=== PATIENT | female | born 2000 | race American Indian/Alaskan Native ===

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

== ENCOUNTER 2021-10-02 16:28 | Emergency (ER) | payer SELFPAY ==
[2021-10-02] MEDS ORDERED: Sodium Chloride 0.9% 10 ML Syringe FLUSH PRN (17:15)
[2021-10-02] MEDS ORDERED: Sodium Chloride 0.9% 1,000 ML IV ONE ×2 (17:15→18:02)
[2021-10-02] MEDS ORDERED: Promethazine 25 MG in Sodium Chloride 0.9% 50 ML IV ONE (17:15)
--- NOTE | 2021-10-02 17:29 | EDM.PDOC ---
ED HPI GENERAL MEDICAL PROBLEM - General Chief Complaint: Gastrointestinal Problem Stated Complaint: VOMITING X 5 DAYS Time Seen by Provider: 10/02/21 17:09 Source of Information: Reports: Patient, RN Notes Reviewed History Limitations: Reports: No Limitations - History of Present Illness INITIAL COMMENTS - FREE TEXT/NARRATIVE: Patient is a 21-year-old female who presents to the ER for her nausea and vomiting. States she has a history of this, but this has been bad for the past few days. States she has been ill for about a week, and states she has not been able to keep much down for food or fluids at all. Might be having some fevers or chills, and she feels short of breath due to her increased anxiety as well. Patient is visibly shaky but again attributes this to her anxiety. Patient recently moved here from [place], and states that she has had a abdominal/GI work-up for her abdominal pain and nothing has ever really been found to be the problem. Nursing staff did note that she admitted to a history of smoking pot, but has not done so for the past few days. Patient states she has had a prescription for Zofran but has used this up and states it did not really seem to be helping much at all. She did stop at a [facility] and got some Dramamine per the pharmacist recommendations and note that this did not help either. 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: Reports: Other (see below) Other 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: dramamine - Related Data Allergies Allergy/AdvReac Type Severity Reaction Status Date / Time No Known Allergies Allergy Verified 10/02/21 16:46 Home Meds: Home Meds Metoclopramide HCl 10 mg PO QID PRN #30 tablet 10/02/21 [Rx] Past Medical History Gastrointestinal History: Reports: Other (See Below) Other Gastrointestinal History: chronic abdominal issues- has seen specialist in [place] for this Psychiatric History: Reports: Anxiety - Past Surgical History GI Surgical History: Reports: Colonoscopy Musculoskeletal Surgical History: Reports: Shoulder Surgery Other Musculoskeletal Surgeries/Procedures:: right rotator cuff surgery Social & Family History - Tobacco Use Tobacco Use Status *Q: Current Some Day Tobacco User Years of Tobacco use: 1 Packs/Tins Daily: 0.2 - Caffeine Use Caffeine Use: Reports: Coffee - Recreational Drug Use Recreational Drug Use: Yes Drug Use in Last 12 Months: Yes Recreational Drug Type: Reports: Marijuana/Hashish Recreational Drug Use Frequency: Daily - Living Situation & Occupation Living situation: Reports: Single, with Significant Other (Boyfriend), Other (friends) Occupation: Employed ([employer]) ED ROS GENERAL - Review of Systems Review Of Systems: Comprehensive ROS is negative, except as noted in HPI. ED EXAM, GI/ABD - Physical Exam Exam: See Below Exam Limited By: No Limitations General Appearance: Alert, WD/WN, No Apparent Distress, Anxious (visibly) Throat/Mouth: Normal Inspection, Other (bilateral dry parched lips) Respiratory/Chest: No Respiratory Distress, Lungs Clear, Normal Breath Sounds, No Accessory Muscle Use, Chest Non-Tender Cardiovascular: Normal Peripheral Pulses, Regular Rate, Rhythm, No Edema GI/Abdominal Exam: Normal Bowel Sounds, Soft, Non-Tender, No Distention, No Mass Extremities: Normal Inspection, Normal Capillary Refill Neurological: Alert, Oriented, Normal Cognition, No Motor/Sensory Deficits Psychiatric: Anxious Skin Exam: Warm, Dry, Intact, Normal Color, No Rash Course - Vital Signs Last Recorded V/S: Last Vital Signs Temp 97.9 F 10/02/21 16:40 Pulse 84 10/02/21 16:40 Resp 16 10/02/21 16:40 BP 128/79 10/02/21 16:40 Pulse Ox 96 10/02/21 16:40 - Orders/Labs/Meds Orders: Active Orders 24 hr Category Date Time Status Peripheral IV Care [RC] . DIRECTED Care 10/02/21 17:15 Ordered Sodium Chloride 0.9% [Saline Flush] Med 10/02/21 17:15 Active 10 ml FLUSH ASDIRECTED PRN Peripheral IV Insertion Adult [OM.PC] Routine Oth 10/02/21 17:15 Ordered Medication Orders Sodium Chloride (Sodium Chloride 0.9% 10 Ml Syringe) 10 ml FLUSH ASDIRECTED PRN PRN Reason: Keep Vein Open Last Admin: 10/02/21 17:27 Dose: 10 ml Documented by: MEERA Labs: Laboratory Tests 10/02/21 10/02/21 10/02/21 Range/Units 16:45 16:55 16:55 WBC 7.33 (3.98-10.04) K/mm3 RBC 5.38 H (3.98-5.22) M/mm3 Hgb 14.7 D (11.2-15.7) gm/dl Hct 43.3 (34.1-44.9) % MCV 80.5 D (79.4-94.8) fl MCH 27.3 (25.6-32.2) pg MCHC 33.9 (32.2-35.5) g/dl RDW Std Deviation 45.1 (36.4-46.3) fL Plt Count 267 (182-369) K/mm3 MPV 9.8 (9.4-12.3) fl Neut % (Auto) 75.7 H (34.0-71.1) % Lymph % (Auto) 8.6 L (19.3-51.7) % [place] % (Auto) 15.3 H (4.7-12.5) % Eos % (Auto) 0 L (0.7-5.8) Baso % (Auto) 0.1 (0.1-1.2) % Neut # (Auto) 5.55 (1.56-6.13) K/mm3 Lymph # (Auto) 0.63 L (1.18-3.74) K/mm3 [place] # (Auto) 1.12 H (0.24-0.36) K/mm3 Eos # (Auto) 0.00 L (0.04-0.36) K/mm3 Baso # (Auto) 0.01 (0.01-0.08) K/mm3 Manual Slide Review Sodium 139 (136-145) mEq/L Potassium 3.4 L (3.5-5.1) mEq/L Chloride 98 (98-107) mEq/L Carbon Dioxide 23 (21-32) mEq/L Anion Gap 21.4 H (5-15) BUN 11 (7-18) mg/dL Creatinine 0.9 (0.55-1.02) mg/dL Est Cr Clr Drug Dosing 104.20 mL/min Estimated GFR (MDRD) > 60 (>60) mL/min BUN/Creatinine Ratio 12.2 L (14-18) Glucose 109 H (70-99) mg/dL Calcium 8.9 (8.5-10.1) mg/dL Total Bilirubin 0.6 (0.2-1.0) mg/dL AST 36 (15-37) U/L ALT 32 (14-59) U/L Alkaline Phosphatase 67 (46-116) U/L Total Protein 8.9 H (6.4-8.2) g/dl Albumin 3.8 (3.4-5.0) g/dl Globulin 5.1 gm/dL Albumin/Globulin Ratio 0.8 L (1-2) Urine Color (Yellow) Urine Appearance (Clear) Urine pH (5.0-8.0) Ur Specific [place] (1.005-1.030) Urine Protein (Negative) Urine Glucose (UA) (Negative) Urine Ketones (Negative) Urine Occult Blood (Negative) Urine Nitrite (Negative) Urine Bilirubin (Negative) Urine Urobilinogen (0.2-1.0) Ur Leukocyte Esterase (Negative) Urine RBC (0-5) /hpf Urine WBC (0-5) /hpf Ur Squamous Epith Cells (0-5) /hpf Urine Bacteria (FEW) /hpf Urine Mucus (FEW) /hpf Urine Opiates Screen (IEWIQE=863) Ur Buprenorphine Scrn (CUTOFF=10) Ur Oxycodone Screen (SRM9AK=388) Urine Methadone Screen (TMIFON=618) Ur Propoxyphene Screen (WZEUKM=500) Ur Barbiturates Screen (BQIKDH=171) Ur Tricyclics Screen (SRKURP=915) Ur Phencyclidine Scrn (CUTOFF=25) Ur Amphetamine Screen (QJAOYW=355) U Methamphetamines Scrn (EKJZRO=486) U Benzodiazepines Scrn (YOLCYJ=301) U Cocaine Metab Screen (LFFDLL=808) U Marijuana (THC) Screen (CUTOFF=50) Influenza Type A RNA Negative (NEGATIVE) Influenza Type B RNA Negative (NEGATIVE) SARS-CoV-2 RNA (YANIRA) Negative (NEGATIVE) 10/02/21 10/02/21 Range/Units 18:40 18:40 WBC (3.98-10.04) K/mm3 RBC (3.98-5.22) M/mm3 Hgb (11.2-15.7) gm/dl Hct (34.1-44.9) % MCV (79.4-94.8) fl MCH (25.6-32.2) pg MCHC (32.2-35.5) g/dl RDW Std Deviation (36.4-46.3) fL Plt Count (182-369) K/mm3 MPV (9.4-12.3) fl Neut % (Auto) (34.0-71.1) % Lymph % (Auto) (19.3-51.7) % [place] % (Auto) (4.7-12.5) % Eos % (Auto) (0.7-5.8) Baso % (Auto) (0.1-1.2) % Neut # (Auto) (1.56-6.13) K/mm3 Lymph # (Auto) (1.18-3.74) K/mm3 [place] # (Auto) (0.24-0.36) K/mm3 Eos # (Auto) (0.04-0.36) K/mm3 Baso # (Auto) (0.01-0.08) K/mm3 Manual Slide Review Sodium (136-145) mEq/L Potassium (3.5-5.1) mEq/L Chloride (98-107) mEq/L Carbon Dioxide (21-32) mEq/L Anion Gap (5-15) BUN (7-18) mg/dL Creatinine (0.55-1.02) mg/dL Est Cr Clr Drug Dosing mL/min Estimated GFR (MDRD) (>60) mL/min BUN/Creatinine Ratio (14-18) Glucose (70-99) mg/dL Calcium (8.5-10.1) mg/dL Total Bilirubin (0.2-1.0) mg/dL AST (15-37) U/L ALT (14-59) U/L Alkaline Phosphatase (46-116) U/L Total Protein (6.4-8.2) g/dl Albumin (3.4-5.0) g/dl Globulin gm/dL Albumin/Globulin Ratio (1-2) Urine Color Yellow (Yellow) Urine Appearance Clear (Clear) Urine pH 6.5 (5.0-8.0) Ur Specific [place] 1.020 (1.005-1.030) Urine Protein 2+ H (Negative) Urine Glucose (UA) Negative (Negative) Urine Ketones 4+ H (Negative) Urine Occult Blood Negative (Negative) Urine Nitrite Negative (Negative) Urine Bilirubin 1+ H (Negative) Urine Urobilinogen 1.0 (0.2-1.0) Ur Leukocyte Esterase Negative (Negative) Urine RBC 0-5 (0-5) /hpf Urine WBC 0-5 (0-5) /hpf Ur Squamous Epith Cells 5-10 H (0-5) /hpf Urine Bacteria Many H (FEW) /hpf Urine Mucus Moderate H (FEW) /hpf Urine Opiates Screen Negative (MIFJOZ=035) Ur Buprenorphine Scrn Negative (CUTOFF=10) Ur Oxycodone Screen Negative (NJG3HK=478) Urine Methadone Screen Negative (HWKXXK=010) Ur Propoxyphene Screen Negative (BBCLLO=664) Ur Barbiturates Screen Negative (GRDQZI=959) Ur Tricyclics Screen Negative (HVCOHD=841) Ur Phencyclidine Scrn Negative (CUTOFF=25) Ur Amphetamine Screen Negative (QWNOMC=868) U Methamphetamines Scrn Negative (YBFMPN=268) U Benzodiazepines Scrn Negative (OKDQGH=211) U Cocaine Metab Screen Negative (GFJLCT=738) U Marijuana (THC) Screen Presumptive positive H (CUTOFF=50) Influenza Type A RNA (NEGATIVE) Influenza Type B RNA (NEGATIVE) SARS-CoV-2 RNA (YANIRA) (NEGATIVE) Meds: Medications Generic Name Dose Route Start Last Admin Trade Name Freq PRN Reason Stop Dose Admin Sodium Chloride 10 ml 10/02/21 17:15 10/02/21 17:27 Sodium Chloride 0.9% 10 Ml Syringe FLUSH 10 ml ASDIRECTED PRN Administration Keep Vein Open Discontinued Medications Generic Name Dose Route Start Last Admin Trade Name Freq PRN Reason Stop Dose Admin Sodium Chloride 1,000 mls @ 999 mls/hr 10/02/21 17:15 10/02/21 17:30 Normal Saline IV 10/02/21 18:15 999 mls/hr ONETIME ONE Administration Promethazine HCl 25 mg/ Sodium 51 mls @ 100 mls/hr 10/02/21 17:15 10/02/21 17:25 Chloride IV 10/02/21 17:45 100 mls/hr ONETIME ONE Administration Sodium Chloride 1,000 mls @ 999 mls/hr 10/02/21 18:02 10/02/21 19:27 Normal Saline IV 10/02/21 19:02 999 mls/hr ONETIME ONE Administration Metoclopramide HCl 10 mg 10/02/21 18:02 10/02/21 18:10 Metoclopramide 10 Mg/2 Ml Sdv IVPUSH 10/02/21 18:03 10 mg ONETIME ONE Administration - Re-Assessments/Exams Free Text/Narrative Re-Assessment/Exam: 10/02/21 17:28 Patient presents to the ER for evaluation of her nausea and vomiting. We will go ahead and get some IV fluids started, get some basic labs and a Covid screen, and give her some Phenergan for initial management. 10/02/21 19:06 Labs have resulted, the CBC is unremarkable, CMP demonstrates an anion gap of 21.4, urinalysis has 4+ ketones but no sign of infection. Patient's influenza screen and Covid screen is negative. Patient was still feeling little bit nauseous after the initial Phenergan, and due to the elevated anion gap we will go ahead and do a second bag of fluids and have given her 10 mg Reglan for ongoing management. Nursing staff did make me aware that the patient told her that she was taking a friend's Seroquel due to a recent break-up with her boyfriend over the last few days as well so she could "sleep". States she was not taking this to excess. 10/02/21 20:02 Patient states she is feeling little bit better. We will go ahead and get her a prescription for Reglan she states this seemed to help the most. I do believe that this could be due to her marijuana use causing cyclical vomiting syndrome in nature. We will have her try to quit using marijuana to see if this helps relieve some of her symptoms. Departure - Departure Time of Disposition: 20:03 Disposition: Home, Self-Care 01 Condition: Good Clinical Impression: Cyclical vomiting syndrome, Dehydration - Discharge Information *PRESCRIPTION DRUG MONITORING PROGRAM REVIEWED*: No *COPY OF PRESCRIPTION DRUG MONITORING REPORT IN PATIENT ELISE: No Prescriptions: Metoclopramide HCl 10 mg PO QID PRN #30 tablet PRN Reason: Nausea Instructions: Dehydration, Adult, [id number], Cyclic Vomiting Syndrome, Adult Referrals: PCP,None [Primary Care Provider] - Forms: ED Department Discharge Additional Instructions: You were evaluated in the ER today for your nausea and vomiting. You had some labs taken, which did demonstrate quite a bit of dehydration and you are given IV fluids for this along with IV nausea medication. The Reglan seemed to help provide you the most relief from the nausea. You have been given a prescription for Reglan you may take 1 tablet 4 times a day as needed for ongoing nausea management. This medication was electronically sent to the [place] pharmacy located in the [place]. Symptoms may be stemming from marijuana use, I would recommend that you stop smoking marijuana to see if this helps relieve some of your abdomen discomfort/nausea and vomiting. Do not hesitate to return to the ER at any time if symptoms change or worsen. Thank you for allowing and choosing us to be involved in your healthcare needs. Sepsis Event Note (ED) - Focused Exam Vital Signs: Vital Signs Temp Pulse Resp BP Pulse Ox 10/02/21 16:40 97.9 F 84 16 128/79 96 - My Orders Last 24 Hours: My Active Orders 10/02/21 17:15 Peripheral IV Care [RC] . DIRECTED Sodium Chloride 0.9% [Saline Flush] 10 ml FLUSH ASDIRECTED PRN Peripheral IV Insertion Adult [OM.PC] Routine - Assessment/Plan Last 24 Hours: My Active Orders 10/02/21 17:15 Peripheral IV Care [RC] . DIRECTED Sodium Chloride 0.9% [Saline Flush] 10 ml FLUSH ASDIRECTED PRN Peripheral IV Insertion Adult [OM.PC] Routine
[2021-10-02] MEDS ORDERED: Metoclopramide 10 MG/2 ML SDV IVPUSH ONE (18:02)
[2021-10-02 18:04] LABS: CORONAVIRUS COVID-19 NAA NEGATIVE (NEGATIVE)
== END 2021-10-02 20:30 | disposition home or self-care (01) ==
LOC: JD.ED 16:28
DX: R11.2 Nausea with vomiting, unspecified (principal); E86.0 Dehydration; Z72.0 Tobacco use; Z20.822 Contact with and (suspected) exposure to COVID-19
CPT/HCPCS: 0240U; 36415; 80053; 80306; 81001; 85025; 96361; 96365; 96375; 99284; J2550; J2765; J7030

== ENCOUNTER 2021-10-04 17:36 | Emergency (ER) | payer SELFPAY ==
[2021-10-04] MEDS ORDERED: Sodium Chloride 0.9% 1,000 ML IV STA (19:25)
[2021-10-04] MEDS ORDERED: Pantoprazole 40 MG Vial IVPUSH ONE (19:27)
[2021-10-04] MEDS ORDERED: Ondansetron 4 MG/2 ML SDV IVPUSH ONE (19:29)
[2021-10-04] MEDS ORDERED: HYDROmorphone 0.5 MG/0.5 ML Syringe IVPUSH ONE (19:29)
--- NOTE | 2021-10-04 19:35 | EDM.PDOC ---
ED HPI GENERAL MEDICAL PROBLEM - General Chief Complaint: Gastrointestinal Problem Stated Complaint: vomiting Time Seen by Provider: 10/04/21 19:03 Source of Information: Reports: Patient, Family History Limitations: Reports: No Limitations - History of Present Illness INITIAL COMMENTS - FREE TEXT/NARRATIVE: The patient presents for abdominal pain, nausea, vomiting and diarrhea. This has been going no for a week. She was seen here 2 days ago. She was given IV fluids and something for nausea and vomiting and labs. Her labs looked good. She was COVID negative. She was given some reglan at home for the nausea and vomiting. That has not been helping. She has generalized abdominal pain. Nothing stays down anymore. Even water will make her vomit. She has lost about 20 pounds. She also has a cough but no fever or chills. She has diarrhea but no dysuria. She has no history of this in the past. She still has her appendix and gallbladder. Onset: Gradual Duration: Week(s): (1) Location: Reports: Abdomen Quality: Reports: Sharp Severity: Moderate Improves with: Reports: None Worsens with: Reports: None Associated Symptoms: Reports: Cough, Nausea/Vomiting. Denies: Chest Pain, Fever/Chills, Headaches, Shortness of Breath - Related Data Allergies Allergy/AdvReac Type Severity Reaction Status Date / Time No Known Allergies Allergy Verified 10/04/21 19:11 Home Meds: Home Meds RX: Metoclopramide HCl 10 mg PO QID PRN #30 tablet 10/02/21 [Rx] Codeine/Promethazine [Phenergan with Codeine] 5 - 10 ml PO Q6HR PRN #300 ml 10/05/21 [Rx] Ondansetron [Zofran ODT] 4 mg PO Q6H PRN #20 tab.dis 10/05/21 [Rx] RX: Potassium Chloride 20 meq PO DAILY #20 tablet.er 10/05/21 [Rx] Past Medical History Gastrointestinal History: Reports: Other (See Below) Other Gastrointestinal History: chronic abdominal issues- has seen specialist in [place] for this Psychiatric History: Reports: Anxiety - Past Surgical History GI Surgical History: Reports: Colonoscopy Musculoskeletal Surgical History: Reports: Shoulder Surgery Other Musculoskeletal Surgeries/Procedures:: right rotator cuff surgery Social & Family History - Tobacco Use Tobacco Use Status *Q: Never Tobacco User - Caffeine Use Caffeine Use: Reports: None - Recreational Drug Use Recreational Drug Use: Yes 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 Denies: Shortness of Breath Cardiovascular: Reports: No Symptoms Endocrine: Reports: No Symptoms GI/Abdominal: Reports: Abdominal Pain, Diarrhea, Nausea, Vomiting : Reports: No Symptoms Musculoskeletal: Reports: No Symptoms ED EXAM, GI/ABD - Physical Exam Exam: See Below Exam Limited By: No Limitations General Appearance: Alert, No Apparent Distress Ears: Normal External Exam Nose: Normal Inspection Head: Atraumatic, Normocephalic Neck: Normal Inspection Respiratory/Chest: No Respiratory Distress, Lungs Clear, Normal Breath Sounds Cardiovascular: Regular Rate, Rhythm, No Edema, No Murmur GI/Abdominal Exam: Soft, No Organomegaly, No Mass, Tender (Moderate generalized abdominal pain) Back Exam: Normal Inspection Extremities: Normal Inspection Course - Vital Signs Last Recorded V/S: Last Vital Signs Temp 97.3 F 10/04/21 19:03 Pulse 75 10/04/21 19:03 Resp 20 10/04/21 19:03 BP 133/87 10/04/21 19:03 Pulse Ox 97 10/04/21 19:03 - Orders/Labs/Meds Orders: Active Orders 24 hr Category Date Time Status Peripheral IV Care [RC] . DIRECTED Care 10/04/21 19:25 Active Abdomen Pelvis w Cont [CT] Stat Exams 10/04/21 19:25 Taken CXR [Chest 1V Frontal] [CR] Stat Exams 10/04/21 19:28 Taken Sodium Chloride 0.9% [Saline Flush] Med 10/04/21 19:25 Active 10 ml FLUSH ASDIRECTED PRN ED Antiemetic Medication Reflex [OM.PC] Stat Oth 10/04/21 19:26 Ordered Peripheral IV Insertion Adult [OM.PC] Stat Oth 10/04/21 19:25 Ordered Medication Orders Sodium Chloride (Sodium Chloride 0.9% 10 Ml Syringe) 10 ml FLUSH ASDIRECTED PRN PRN Reason: Keep Vein Open Last Admin: 10/04/21 20:31 Dose: 10 ml Documented by: Admin: 10/04/21 19:56 Dose: 10 ml Documented by: SALVATORE Labs: Laboratory Tests 10/04/21 10/04/21 10/04/21 Range/Units 20:00 20:00 20:00 WBC 7.37 (3.98-10.04) K/mm3 RBC 4.83 (3.98-5.22) M/mm3 Hgb 13.3 (11.2-15.7) gm/dl Hct 39.8 (34.1-44.9) % MCV 82.4 (79.4-94.8) fl MCH 27.5 (25.6-32.2) pg MCHC 33.4 (32.2-35.5) g/dl RDW Std Deviation 46.1 (36.4-46.3) fL Plt Count 319 (182-369) K/mm3 MPV 9.4 (9.4-12.3) fl Neut % (Auto) 67.9 (34.0-71.1) % Lymph % (Auto) 18.0 L (19.3-51.7) % White % (Auto) 13.4 H (4.7-12.5) % Eos % (Auto) 0.1 L (0.7-5.8) Baso % (Auto) 0.3 (0.1-1.2) % Neut # (Auto) 5.00 (1.56-6.13) K/mm3 Lymph # (Auto) 1.33 (1.18-3.74) K/mm3 White # (Auto) 0.99 H (0.24-0.36) K/mm3 Eos # (Auto) 0.01 L (0.04-0.36) K/mm3 Baso # (Auto) 0.02 (0.01-0.08) K/mm3 Manual Slide Review Sodium 135 L (136-145) mEq/L Potassium 2.5 L (3.5-5.1) mEq/L Chloride 97 L (98-107) mEq/L Carbon Dioxide 25 (21-32) mEq/L Anion Gap 15.5 H (5-15) BUN 7 (7-18) mg/dL Creatinine 0.8 (0.55-1.02) mg/dL Est Cr Clr Drug Dosing 117.23 mL/min Estimated GFR (MDRD) > 60 (>60) mL/min BUN/Creatinine Ratio 8.8 L (14-18) Glucose 81 (70-99) mg/dL Lactic Acid 1.2 (0.4-2.0) mmol/L Calcium 8.8 (8.5-10.1) mg/dL Magnesium 2.2 (1.8-2.4) mg/dL Total Bilirubin 0.8 (0.2-1.0) mg/dL AST 49 H (15-37) U/L ALT 61 H (14-59) U/L Alkaline Phosphatase 63 (46-116) U/L Total Protein 8.7 H (6.4-8.2) g/dl Albumin 3.4 (3.4-5.0) g/dl Globulin 5.3 gm/dL Albumin/Globulin Ratio 0.6 L (1-2) Lipase 143 (73-393) U/L HCG, Qual (NEGATIVE) Urine Color (Yellow) Urine Appearance (Clear) Urine pH (5.0-8.0) Ur Specific [place] (1.005-1.030) Urine Protein (Negative) Urine Glucose (UA) (Negative) Urine Ketones (Negative) Urine Occult Blood (Negative) Urine Nitrite (Negative) Urine Bilirubin (Negative) Urine Urobilinogen (0.2-1.0) Ur Leukocyte Esterase (Negative) Urine RBC (0-5) /hpf Urine WBC (0-5) /hpf Ur Squamous Epith Cells (0-5) /hpf Urine Bacteria (FEW) /hpf Urine Mucus (FEW) /hpf SARS-CoV-2 RNA (YANIRA) (NEGATIVE) 10/04/21 10/04/21 10/04/21 Range/Units 20:00 20:05 20:53 WBC (3.98-10.04) K/mm3 RBC (3.98-5.22) M/mm3 Hgb (11.2-15.7) gm/dl Hct (34.1-44.9) % MCV (79.4-94.8) fl MCH (25.6-32.2) pg MCHC (32.2-35.5) g/dl RDW Std Deviation (36.4-46.3) fL Plt Count (182-369) K/mm3 MPV (9.4-12.3) fl Neut % (Auto) (34.0-71.1) % Lymph % (Auto) (19.3-51.7) % White % (Auto) (4.7-12.5) % Eos % (Auto) (0.7-5.8) Baso % (Auto) (0.1-1.2) % Neut # (Auto) (1.56-6.13) K/mm3 Lymph # (Auto) (1.18-3.74) K/mm3 White # (Auto) (0.24-0.36) K/mm3 Eos # (Auto) (0.04-0.36) K/mm3 Baso # (Auto) (0.01-0.08) K/mm3 Manual Slide Review Sodium (136-145) mEq/L Potassium (3.5-5.1) mEq/L Chloride (98-107) mEq/L Carbon Dioxide (21-32) mEq/L Anion Gap (5-15) BUN (7-18) mg/dL Creatinine (0.55-1.02) mg/dL Est Cr Clr Drug Dosing mL/min Estimated GFR (MDRD) (>60) mL/min BUN/Creatinine Ratio (14-18) Glucose (70-99) mg/dL Lactic Acid (0.4-2.0) mmol/L Calcium (8.5-10.1) mg/dL Magnesium (1.8-2.4) mg/dL Total Bilirubin (0.2-1.0) mg/dL AST (15-37) U/L ALT (14-59) U/L Alkaline Phosphatase (46-116) U/L Total Protein (6.4-8.2) g/dl Albumin (3.4-5.0) g/dl Globulin gm/dL Albumin/Globulin Ratio (1-2) Lipase (73-393) U/L HCG, Qual Negative (NEGATIVE) Urine Color Yellow (Yellow) Urine Appearance Clear (Clear) Urine pH 8.0 (5.0-8.0) Ur Specific [place] 1.015 (1.005-1.030) Urine Protein Negative (Negative) Urine Glucose (UA) Negative (Negative) Urine Ketones 2+ H (Negative) Urine Occult Blood Trace-intact H (Negative) Urine Nitrite Negative (Negative) Urine Bilirubin Negative (Negative) Urine Urobilinogen 0.2 (0.2-1.0) Ur Leukocyte Esterase Negative (Negative) Urine RBC 0-5 (0-5) /hpf Urine WBC 0-5 (0-5) /hpf Ur Squamous Epith Cells 5-10 H (0-5) /hpf Urine Bacteria Few (FEW) /hpf Urine Mucus Few (FEW) /hpf SARS-CoV-2 RNA (YANIRA) Negative (NEGATIVE) Meds: Medications Generic Name Dose Route Start Last Admin Trade Name Alba PRN Reason Stop Dose Admin Sodium Chloride 10 ml 10/04/21 19:25 10/04/21 20:31 Sodium Chloride 0.9% 10 Ml Syringe FLUSH 10 ml ASDIRECTED PRN Administration Keep Vein Open Discontinued Medications Generic Name Dose Route Start Last Admin Trade Name Alba PRN Reason Stop Dose Admin Diphenhydramine HCl 50 mg 10/04/21 21:44 10/04/21 22:00 Diphenhydramine 50 Mg/Ml Sdv IVPUSH 10/04/21 21:45 50 mg ONETIME ONE Administration Hydromorphone HCl 0.5 mg 10/04/21 19:29 10/04/21 19:56 Hydromorphone 0.5 Mg/0.5 Ml Syringe IVPUSH 10/04/21 19:30 0.5 mg ONETIME ONE Administration Sodium Chloride 1,000 mls @ 1,000 mls/hr 10/04/21 19:25 10/04/21 19:55 Normal Saline IV 10/04/21 20:24 1,000 mls/hr .BOLUS STA Administration Potassium Chloride 10 meq/ 100 mls @ 100 mls/hr 10/04/21 21:15 10/05/21 00:51 Premix IV 10/05/21 01:14 100 mls/hr Q1H RAFIA Administration Iopamidol 100 ml 10/04/21 20:30 10/04/21 20:31 Iopamidol 612 Mg/Ml 100 Ml Bottle IVPUSH 10/04/21 20:31 100 ml ONETIME ONE Administration Metoclopramide HCl 10 mg 10/04/21 21:43 10/04/21 22:03 Metoclopramide 10 Mg/2 Ml Sdv IVPUSH 10/04/21 21:44 10 mg ONETIME ONE Administration Ondansetron HCl 4 mg 10/04/21 19:29 10/04/21 19:56 Ondansetron 4 Mg/2 Ml Sdv IVPUSH 10/04/21 19:30 4 mg ONETIME ONE Administration Ondansetron HCl 4 mg 10/05/21 01:30 Ondansetron 4 Mg/2 Ml Sdv IVPUSH 10/05/21 01:31 ONETIME ONE Pantoprazole Sodium 40 mg 10/04/21 19:27 10/04/21 19:55 Pantoprazole 40 Mg Vial IVPUSH 10/04/21 19:28 40 mg ONETIME ONE Administration Promethazine HCl/Codeine 10 ml 10/04/21 22:34 10/04/21 23:01 Codeine/Promethazine 10-6.25 Mg/5 Ml Syrup 5 Ml Ud Cup PO 10/04/21 22:35 10 ml ONETIME ONE Administration Sodium Chloride 10 ml 10/04/21 20:30 10/04/21 21:11 Sodium Chloride 0.9% 10 Ml Sdv FLUSH 10/04/21 20:31 10 ml ONETIME ONE Administration - Re-Assessments/Exams Free Text/Narrative Re-Assessment/Exam: 10/04/21 19:34 I ordered an IV NS 1L bolus, zofran 4mg IV, dilaudid 0.5mg IV, protonix 20mg IV, labs, UA, CXR and a CT of her abdomen and pelvis with IV and oral contrast. 10/04/21 22:36 Her CXR looks good. Her CBC looks good. Her Na was a little low at 135. Her K was low at 2.5. I ordered 40meq IV. Her anion gap was slightly elevated at 15.5. Her AST was elevated at 49. Her ALT was elevated at 61. Her lipase was negative. Her HCG is negative. Her UA shows no UTI. She is COVID negative. Her CT shows acute airspace disease in he left lung base, highly concerning for atypical viral pneumonia in the appropriate clinical setting. Negative for acute abdominopelvic pathology. It appears she has COVID pneumonia. She started having symptoms 2 weeks ago. I will give her some phenergan with codeine and see if she can keep more fluid down. 10/05/21 00:35 She has a little more time left on the potassium. 10/05/21 01:37 She was nauseated again. I will give her zofran. She was able to keep down the powerade. I feel I can discharge her home. Departure - Departure Time of Disposition: 01:40 Disposition: Home, Self-Care 01 Condition: Good Clinical Impression: Pneumonia due to COVID-19 virus, Hypokalemia Nausea and vomiting Qualifiers: Vomiting type: unspecified Vomiting Intractability: non-intractable Qualified Code(s): R11.2 - Nausea with vomiting, unspecified - Discharge Information *PRESCRIPTION DRUG MONITORING PROGRAM REVIEWED*: Not Applicable *COPY OF PRESCRIPTION DRUG MONITORING REPORT IN PATIENT ELISE: Not Applicable Prescriptions: Codeine/Promethazine [Phenergan with Codeine] 5 - 10 ml PO Q6HR PRN #300 ml PRN Reason: Cough RX: Potassium Chloride 20 meq PO DAILY #20 tablet.er Ondansetron [Zofran ODT] 4 mg PO Q6H PRN #20 tab.dis PRN Reason: Nausea\vomiting Referrals: PCP,None [Primary Care Provider] - Missy Cardona MD [Physician] - 1 Week Forms: ED Department Discharge Additional Instructions: Drink plenty of fluids. Advance your diet as tolerated. Try some broth and then crackers and so forth. Take the zofran ODT 4mg every 6 hours as needed for nausea and vomiting. You can use the phenergan with codeine for any cough. Follow up with Missy Cardona MD in our clinic or another provider this week. Please return if you are worse. Sepsis Event Note (ED) - Evaluation Sepsis Screening Result: No Definite Risk - Focused Exam Vital Signs: Vital Signs Temp Pulse Resp BP Pulse Ox 10/04/21 19:03 97.3 F 75 20 133/87 97 - My Orders Last 24 Hours: My Active Orders 10/04/21 19:25 Peripheral IV Care [RC] . DIRECTED Abdomen Pelvis w Cont [CT] Stat Sodium Chloride 0.9% [Saline Flush] 10 ml FLUSH ASDIRECTED PRN Peripheral IV Insertion Adult [OM.PC] Stat 10/04/21 19:26 ED Antiemetic Medication Reflex [OM.PC] Stat 10/04/21 19:28 CXR [Chest 1V Frontal] [CR] Stat - Assessment/Plan Last 24 Hours: My Active Orders 10/04/21 19:25 Peripheral IV Care [RC] . DIRECTED Abdomen Pelvis w Cont [CT] Stat Sodium Chloride 0.9% [Saline Flush] 10 ml FLUSH ASDIRECTED PRN Peripheral IV Insertion Adult [OM.PC] Stat 10/04/21 19:26 ED Antiemetic Medication Reflex [OM.PC] Stat 10/04/21 19:28 CXR [Chest 1V Frontal] [CR] Stat
[2021-10-04] MEDS: Sodium Chloride 0.9% 10 ML Syringe FLUSH PRN ×2 (19:56→20:31)
[2021-10-04] MEDS ORDERED: Iopamidol 612 MG/ML 100 ML Bottle IVPUSH ONE (20:30)
[2021-10-04] MEDS ORDERED: Sodium Chloride 0.9% 10 ML SDV FLUSH ONE (20:30)
[2021-10-04] MEDS: Potassium Chloride 10 MEQ in Premix Bag 1 BAG IV SCH ×2 (21:16→22:49)
[2021-10-04] MEDS ORDERED: Metoclopramide 10 MG/2 ML SDV IVPUSH ONE (21:43)
[2021-10-04] MEDS ORDERED: diphenhydrAMINE 50 MG/ML SDV IVPUSH ONE (21:44)
[2021-10-04] MEDS ORDERED: Codeine/Promethazine 10-6.25 MG/5 ML Syrup 5 ML UD Cup PO ONE (22:34)
[2021-10-05] MEDS: Potassium Chloride 10 MEQ in Premix Bag 1 BAG IV SCH ×2 (00:27→00:51)
[2021-10-05] MEDS ORDERED: Ondansetron 4 MG/2 ML SDV IVPUSH ONE (01:30)
--- NOTE | 2021-10-05 06:59 | CR ---
Chest: Portable view of the chest was obtained. Comparison: No prior chest imaging is available. Subsequent CT abdomen and pelvis study was available. Heart size and mediastinum are normal. Slight density is seen within the left lung base compatible with mild diffuse pneumonia. Lungs otherwise are clear. Bony structures show nothing acute. Impression: 1. Slight density within the left lung base which correlates to subsequent CT study of parenchymal density. 2. Chest x-ray is otherwise unremarkable. Diagnostic code #3
--- NOTE | 2021-10-05 07:04 | CT ---
CT abdomen and pelvis Technique: Multiple axial sections were obtained from above the dome of the diaphragm inferiorly through the pubic symphysis. Intravenous contrast was utilized. No oral contrast has been given. Delayed images were also obtained through the bladder. Reconstructed coronal and sagittal images were obtained. Comparison: No prior abdominal imaging is available. Findings: Increased density is seen within a large portion of the left lower lung. Please rule out COVID etiology. Visualized left lung base is clear. Low density is noted next to the ligamentum teres fissure which is felt to be incidental. Liver shows no focal parenchymal abnormality. Spleen size is normal. Adrenal glands show no nodule. Pancreas appears within normal limits. Kidneys show symmetric contrast enhancement. No hydronephrosis or mass is seen. Gallbladder contains no calcified gallstones. Abdominal aorta shows no aneurysm. No retroperitoneal adenopathy or mesenteric abnormalities are seen. No pelvic mass or adenopathy is identified. Appendix is not definitely visualized. No bowel dilatation is seen. Delayed images show contrast within the right ureter and bladder. No free fluid or inflammatory change is seen. Bone window settings were reviewed which show no acute osseous finding. Impression: 1. Diffuse increased density within the left lung base. Please rule out COVID etiology. 2. Nothing acute is otherwise seen on CT study of the abdomen and pelvis. 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
== END 2021-10-05 02:00 | disposition home or self-care (01) ==
LOC: JD.ED 17:36
DX: U07.1 COVID-19 (principal); J12.82 Pneumonia due to coronavirus disease 2019; E87.6 Hypokalemia; R11.2 Nausea with vomiting, unspecified; Z20.822 Contact with and (suspected) exposure to COVID-19
CPT/HCPCS: 36415; 71045; 74177; 80053; 81001; 83605; 83690; 83735; 84703; 85025; 87635; 96365; 96366; 96375; 96376; 99284; A9270; C9113; J1170; J1200; J2405; J2765; J3480; J7030; Q9967; U0002

== ENCOUNTER 2022-06-07 11:12 | Emergency (ER) | payer BC ==
[2022-06-07] MEDS ORDERED: LORazepam 2 MG/ML SDV IM ONE (12:23)
== END 2022-06-07 13:15 | disposition home or self-care (01) ==
LOC: JD.ED 11:12
DX: F41.9 Anxiety disorder, unspecified (principal); F17.210 Nicotine dependence, cigarettes, uncomplicated
CPT/HCPCS: 96372; 99283; J2060

== ENCOUNTER 2023-03-09 09:12 | Emergency (ER) | payer BC ==
[2023-03-09] MEDS ORDERED: Sodium Chloride 0.9% 1,000 ML IV ONE (10:27)
[2023-03-09] MEDS ORDERED: Ondansetron 4 MG/2 ML SDV IVPUSH ONE (10:27)
[2023-03-09 11:27] LABS: ESTIMATED GFR 107 mL/min (>60)
== END 2023-03-09 12:40 | disposition home or self-care (01) ==
LOC: JD.ED 09:12
DX: O21.9 Vomiting of pregnancy, unspecified (principal); O99.891 Other specified diseases and conditions complicating pregnancy; R10.31 Right lower quadrant pain; Z79.899 Other long term (current) drug therapy; Z3A.01 Less than 8 weeks gestation of pregnancy
CPT/HCPCS: 36415; 76817; 80053; 81001; 84702; 85014; 85018; 86900; 86901; 87086; 96361; 96374; 99284; J2405; J7030

== ENCOUNTER 2023-04-24 04:37 | Emergency (ER) | payer BC ==
[2023-04-24] MEDS ORDERED: Ondansetron 4 MG/2 ML SDV IVPUSH ONE (05:12)
[2023-04-24] MEDS ORDERED: Lactated Ringers 1,000 ML IV ONE (05:12)
[2023-04-24 05:20] LABS: BASOPHILS ABSOLUTE AUTO 0.02 K/mm3 (0.01-0.08); BASOPHILS PERCENT AUTO 0.2 % (0.1-1.2); EOSINOPHILS ABSOLUTE AUTO 0.05 K/mm3 (0.04-0.36); EOSINOPHILS PERCENT AUTO 0.4 (0.7-5.8); HEMATOCRIT 35.4 % (34.1-44.9); IMMATURE GRAN ABSOLUTE AUTO 0.03 K/mm3 (0.00-0.10); IMMATURE GRAN PERCENT AUTO 0.3 % (<=1.0); LYMPHOCYTES ABSOLUTE AUTO 0.88 K/mm3 (1.18-3.74); LYMPHOCYTES PERCENT AUTO 7.8 % (19.3-51.7); MEAN CORPUSCULAR HEMOGLOBIN 29.1 pg (25.6-32.2); MEAN CORPUSCULAR HGB CONC 33.9 g/dl (32.2-35.5); MEAN CORPUSCULAR VOLUME 85.7 fl (79.4-94.8); MEAN PLATELET VOLUME 9.3 fl (9.4-12.3); MONOCYTES ABSOLUTE AUTO 1.22 K/mm3 (0.24-0.36); MONOCYTES PERCENT AUTO 10.8 % (4.7-12.5); NEUTROPHILS ABSOLUTE AUTO 9.09 K/mm3 (1.56-6.13); NEUTROPHILS PERCENT AUTO 80.5 % (34.0-71.1); PLATELET COUNT,PLT 296 K/mm3 (182-369); RED BLOOD CELL COUNT 4.13 M/mm3 (3.98-5.22); WHITE BLOOD CELL COUNT,WBC 11.29 K/mm3 (3.98-10.04)
[2023-04-24] MEDS ORDERED: Promethazine 25 MG Tab PO ONE (05:45)
[2023-04-24 05:50] LABS: A/G RATIO 0.7 (1-2); ALBUMIN 3.1 g/dl (3.4-5.0); ANION GAP 17.1 (5-15); BILIRUBIN TOTAL 0.5 mg/dL (0.2-1.0); BUN/CREATININE RATIO 7.1 (14-18); CALCIUM 8.4 mg/dL (8.5-10.1); CREATININE 0.7 mg/dL (0.55-1.02); EST CRCL DRUG DOSING (CG) 132.86 mL/min; POTASSIUM,K 3.1 mEq/L (3.5-5.1); PROTEIN TOTAL,TP 7.4 g/dl (6.4-8.2)
[2023-04-24 06:42] LABS: APPEARANCE,URINE CLEAR (Clear); BILIRUBIN,URINE NEGATIVE (Negative); COLOR,URINE YELLOW (Yellow); GLUCOSE,URINE NEGATIVE (Negative); KETONES,URINE 4+ (Negative); LEUKOCYTE ESTERASE,URINE 1+ (Negative); NITRITE,URINE NEGATIVE (Negative); OCCULT BLOOD,URINE NEGATIVE (Negative); PH,URINE 6.5 (5.0-8.0); PROTEIN,URINE NEGATIVE (Negative); UROBILINOGEN,URINE 0.2 (0.2-1.0)
[2023-04-24] MEDS: Potassium Chloride 10 MEQ in Premix Bag 1 BAG IV SCH ×2 (06:45→08:00)
[2023-04-24 06:59] LABS: BACTERIA,URINE MODERATE /hpf (FEW); MUCUS,URINE MODERATE /hpf (FEW); RBC,URINE 0-5 /hpf (0-5); SQUAMOUS EPITHELIAL CELLS,UR 0-5 /hpf (0-5)
[2023-04-24] MEDS ORDERED: Sodium Chloride 0.9% 1,000 ML IV SCH (07:00)
== END 2023-04-24 09:29 | disposition home or self-care (01) ==
LOC: JD.ED 04:37
DX: O21.1 Hyperemesis gravidarum with metabolic disturbance (principal); O99.321 Drug use complicating pregnancy, first trimester; F12.10 Cannabis abuse, uncomplicated; Z3A.12 12 weeks gestation of pregnancy
CPT/HCPCS: 36415; 80053; 81001; 85025; 87086; 96361; 96365; 96366; 96375; 99284; J2405; J3480; J7030; J7120; J8597

== ENCOUNTER 2025-08-10 13:12 | Emergency (ER) | payer SELFPAY ==
[2025-08-10] MEDS: Ketorolac 30 MG/ML SDV IM ONE (14:16)
== END 2025-08-10 15:20 | disposition home or self-care (01) ==
LOC: JD.ED 13:12
DX: S93.401A Sprain of unspecified ligament of right ankle, initial encounter (principal); Z79.899 Other long term (current) drug therapy; W10.9XXA Fall (on) (from) unspecified stairs and steps, initial encounter; Y93.89 Activity, other specified
CPT/HCPCS: 29515; 73610; 96372; 99283; J1885